=== PATIENT | male | born 1980 | race Caucasian/White ===

== ENCOUNTER → 2019-10-26 10:21 | Outpatient (CLI) | payer BC, SELFPAY ==
[2019-10-27 07:13] LABS: SARS-COV-2 TOTAL ABS Nonreactive (Nonreactive)
== END ==
PROVIDERS: PCP Student in an Organized Health Care Education/Training Program; Referring Provider Internal Medicine Pulmonary Disease; Visit Provider Internal Medicine Pulmonary Disease
DX: R05 Cough (principal); R06.00 Dyspnea, unspecified
CPT/HCPCS: 86769; G2023

== ENCOUNTER → 2020-01-08 14:02 | Outpatient (CLI) | payer BC, SELFPAY ==
--- NOTE | 2020-01-08 14:07 | ECHOD_ITS ---
Reason For Study: DYSPNEA Procedure This was a 2D Doppler, Color Flow transthoracic echocardiogram. Exam performed in department. Left Ventricle Normal LV size. Left ventricular systolic function is normal. The estimated ejection fraction is 60 %. No regional wall motion abnormalities noted. Right Ventricle Normal RV size. Normal systolic function. Atria Normal left atrium. Normal right atrium. Mitral Valve Normal mitral valve. Tricuspid Valve Normal tricuspid valve. Mild tricuspid valve insufficiency. Aortic Valve Trisinus/trileaflet aortic valve. Pulmonic Valve Normal pulmonic valve. Great Vessels Normal aortic root. The pulmonary artery is normal size. Normal inferior vena cava. Pericardium/Pleural No pericardial effusion. MMode/2D Measurements & Calculations LVIDd: 5.6 cm IVSd: 0.93 cm Ao root diam: 3.4 cm LVIDs: 3.6 cm LVPWd: 1.0 cm RVDd: 3.8 cm FS: 35.5 % LAV(MOD-bp): 61.4 ml LA A4 area: 19.0 cm2 LA dimension(2D): 3.7 cm LAV(MOD-bp) Indexed: 27.7 ml/m2 LAV(MOD-sp2): 64.7 ml LAV(MOD-sp4): 58.6 ml RA A4 area: 17.6 cm2 Time Measurements MV dec time: 0.21 sec Doppler Measurements & Calculations MV E max sergio: 81.4 cm/sec Lat Peak E' Sergio: 12.9 cm/sec Med Peak E' Sergio: 7.7 cm/sec MV A max sergio: 71.0 cm/sec E/E' lat: 6.3 E/E' med: 10.5 MV E/A: 1.1 Ao V2 max: 127.4 cm/sec LV V1 max: 108.6 cm/sec PA V2 max: 106.4 cm/sec Ao max P.5 mmHg LV V1 max P.7 mmHg TR max sergio: 228.9 cm/sec TR max P.0 mmHg Interpretation Summary Normal LV size. Left ventricular systolic function is normal. The estimated ejection fraction is 60 %. Mild tricuspid valve insufficiency. Structurally normal valves. Ordering Physician: Saeed Hudson Referring Physician: Sebastian Bradford Performed By: Celine Lopez, MARY, RVT
== END ==
PROVIDERS: PCP Student in an Organized Health Care Education/Training Program; Referring Provider Internal Medicine Pulmonary Disease; Visit Provider Internal Medicine Pulmonary Disease
DX: R06.00 Dyspnea, unspecified (principal)
CPT/HCPCS: 93306

== ENCOUNTER → 2020-02-06 12:58 | Outpatient (CLI) | payer BC, SELFPAY ==
--- NOTE | 2020-02-06 13:01 | STEWCON_ITS ---
Reason For Study: MASON Stress Results Protocol: Dobutatmine Stress Echo Maximum Predicted HR: 181 bpm Target HR: 154 bpm % Maximum Predicted HR: 90 % Heart Stage Duration Rate BP Dose Comment (mm:ss) (bpm) BASELINE 69 124/86 SINUS ARRHYTHMIA, 8 CC DILUTED DEFINITY USED DSE- 10 MCG 3:40 81 132/[id number] SX DSE- 20 MCG 3:14 96 152/[id number] PVC, TRIGEMINY DSE- 30 MCG 4:28 150 152/[id number] TRIGEMINY, CHEST TIGHTNESS, LIGHTHEADED DSE- 40 MCG 2:00 162 145/[id number] TIGHTNESS, FATIGUE, LIGHTHEADEDNESS CHEST TIGHTNESS SUBSIDED, FATIGUE AND LIGHTHEADEDNESS RECOVERY 75 145/[address] VACA IN TO SEE PT Stress Duration: 13:22 mm:ss Maximum Stress HR: 162 bpm Baseline Echocardiogram Findings Stress Echo Wall motion Data Resting WM Intermediate WM Stress WM Resting Wall Motion Wall Motion Int. Wall Motion Stress All segments Normal. All segments Normal. All segments Hyperkinetic. Ejection Fraction 55 %. Ejection Fraction 65 %. Ejection Fraction 75 %. Stress Results Arrhythmias: During dobutamine/atropine infusion: Sinus rhythm; accelerated junctional rhythm; PVCs; ventricular trigeminy; Arrhythmias: During recovery: Occasional PVC; intermittent ventricular trigeminy; subsequent resolution to baseline sinus rhythm Stopped secondary to to: Achieving target heart rate. EKG Data Baseline ECG: Sinus rhythm. Peak pharmacologic ECG: Sinus rhythm with [id number] nonspecific ST segment variability. Symptoms with Stress The patient reported a variety of symptoms during pharmacologic infusion including chest tightness, lightheadedness, and fatigue-all which improved during recovery. Interpretation Summary 1. Contrast injection performed 2. Negative (adequate) pharmacologic (dobutamine/atropine) stress echocardiogram Ordering Physician: Sebastian Bradford Referring Physician: Sebastian Bradford Performed By: Nguyen Grady RDCS
== END ==
PROVIDERS: PCP Student in an Organized Health Care Education/Training Program; Referring Provider Student in an Organized Health Care Education/Training Program; Visit Provider Student in an Organized Health Care Education/Training Program
DX: R06.09 Other forms of dyspnea (principal)
CPT/HCPCS: 93017; 93350; J7040; Q9957; A4216; C8928

== ENCOUNTER → 2020-06-19 09:44 | Outpatient (CLI) | payer BC, SELFPAY ==
[2020-06-19 08:42] VITALS: BMI 31.7
[2020-06-19 11:17] LABS: Anion Gap 3 (5-15); BUN 23 mg/dL (7-18); Calcium,Total 9.1 mg/dL (8.5-10.1); Chloride 105 mmol/L (98-107); Creatinine, Serum 1.28 mg/dL (0.70-1.30); EST Glomerular Filtration Rate 66 mL/min (>60); Est Glom Filt Rate - Afr Amer 80 mL/min (>60); Glucose 80 mg/dL (74-106); Potassium 4.4 mmol/L (3.5-5.1); Sodium Level 137 mmol/L (136-145)
== END ==
PROVIDERS: PCP Student in an Organized Health Care Education/Training Program; Referring Provider Internal Medicine Cardiovascular Disease; Visit Provider Internal Medicine Cardiovascular Disease
DX: I10 Essential (primary) hypertension (principal)
CPT/HCPCS: 36415; 80048